=== PATIENT | male | born 1940 | race Caucasian/White ===

== ENCOUNTER 2021-02-19 12:52 | Outpatient (CLI) | payer MEDICARE, BC | END 2021-02-19 12:53 | disposition home or self-care (01) | LOC: TBSIIMAG 12:52 | PROVIDERS: ATTEND Neurological Surgery | DX: S22.009D Unspecified fracture of unspecified thoracic vertebra, subsequent encounter for fracture with routine healing (principal) | CPT/HCPCS: 72070; 72072 ==

== ENCOUNTER 2021-03-20 12:38 | Outpatient (CLI) | payer MEDICARE, BC | END 2021-03-20 12:39 | disposition home or self-care (01) | LOC: TBSIIMAG 12:38 | PROVIDERS: ATTEND Neurological Surgery | DX: S24.101A Unspecified injury at T1 level of thoracic spinal cord, initial encounter (principal); S24.102A Unspecified injury at T2-T6 level of thoracic spinal cord, initial encounter; M54.5 Low back pain; M47.814 Spondylosis without myelopathy or radiculopathy, thoracic region | CPT/HCPCS: 72072 ==

== ENCOUNTER 2021-04-21 12:35 | Outpatient (CLI) | payer MEDICARE, BC | END 2021-04-21 12:36 | disposition home or self-care (01) | LOC: TBSIIMAG 12:35 | PROVIDERS: ATTEND Neurological Surgery | DX: S22.008A Other fracture of unspecified thoracic vertebra, initial encounter for closed fracture (principal); M47.816 Spondylosis without myelopathy or radiculopathy, lumbar region | CPT/HCPCS: 72072 ==